=== PATIENT | male | born 2005 | race Hispanic/Latino ===

== ENCOUNTER 2023-08-09 09:16 | Outpatient (CLI) | payer OTHER, SELFPAY ==
--- NOTE | ~2023-08-09 | XR_ITS ---
EXAMINATION: [id number] DATE: 08/09/2023 09:35 INDICATION: Anterior right knee pain. TECHNIQUE: 2 views of right knee were obtained. COMPARISON: None. FINDINGS: Bone alignment is normal. No fracture. Joint spaces are normal. No knee joint effusion. IMPRESSION: 1. Normal right knee. Reviewed, dictated and finalized at location A. IMPRESSION: 1. Normal right knee.
== END 2023-08-09 09:17 | disposition home or self-care (01) ==
LOC: ANHIMG 09:21
PROVIDERS: PCP Registered Nurse; Visit Provider Registered Nurse
DX: M25.561 Pain in right knee (principal)
CPT/HCPCS: 73560

== ENCOUNTER 2023-10-09 15:15 | Outpatient (RCR) | payer BC, OTHER, SELFPAY ==
--- NOTE | 2023-09-01 17:14 | PTOPEVAL1 ---
Assessment and note entered by Janny Ireland, PT Evaluation Information Assessment Status Evaluation Diagnosis R knee pain Onset approx 4 months ago Therapy Considerations pain, hypomobility, muscle imbalance, gait impairments Subjective Information Pt reports feeling clicking and cracking to R knee which started when he was playing basketball and track and field which now recently, he is feeling more pain versus instability. States worse with standing for long periods of time, felt stiff when not moving around much. States going up /down stairs and getting up from the floor is very uncomfortable. Pt states bending down to the floor and getting back also increases the pain. Takes medication prescribed by doctor, sits down or walks around more to relieve the pain. Reported Pain Level Pain Score 5: Self Report Assessment PT Clinical Summary Pt is a 17 yo male pt who presents with increased pain to R knee with noted crepitus with both flexion and extension motions; negative for ant and post drawer test, also negative for varus and valgus test. Pt reports stiffness that is relieved with movement, some effusion palpable around the medial aspect of R knee. Demos decreased joint mobility, weakness and gait impairments. Pt will benefit from skilled PT to manage pain, improve hip and knee stability, core and BLE strength to address deficits and improve quality of life. Plan of Care Interventions Electrical Stimulation,Gait Training,Hot Pack/Cold Pack,Manual Therapy,Neuro Re-education,Patient/ Caregiver Educati,Therapeutic Activities, Therapeutic Exercise PT Services Indicated Yes Treatment Frequency and 1x/wk upto 6 visits Duration These treatments will address the objective and functional deficits as defined above. The patient will be advanced safely and appropriately in order for the patient to progress towards his/her prior level of function. Additional exercises will be introduced and as well as a comprehensive home exercise program upon discharge, if needed, ?to ensure carryover of functional gains achieved in the clinic. This treatment plan has been reviewed and agreement upon by the patient.
--- NOTE | 2023-10-16 15:41 | PCPTNOTE ---
pt called and canceled today's reevaluation appt.
--- NOTE | 2023-11-12 16:07 | PCPTNOTE ---
pt did not show for today's reevaluation. Called and left voice mail message for pt.
--- NOTE | 2023-11-21 09:51 | PCPTNOTE ---
PHYSICAL THERAPY DISCHARGE 11-21-23 Eladio has received 5 PT sessions, from August 31 to October 08 for the diagnosis of R knee pain. He had 2 no show and 1 canceled appointment. Discharge PT due to pt stopped attend therapy. The goals were not addressed.
== END 2023-11-19 10:12 | disposition home or self-care (01) ==
LOC: ANHPT 15:15
PROVIDERS: PCP Registered Nurse; Visit Provider Registered Nurse
DX: M25.561 Pain in right knee (principal)
CPT/HCPCS: 97014; 97110; 97161; 97530; G0283